=== PATIENT | female | born 1945 | race Caucasian/White ===

== ENCOUNTER 2021-12-28 09:14 | Outpatient (RCR) | payer MEDICARE | END 2021-12-30 | disposition home or self-care (01) | PROVIDERS: ATTEND Family Medicine | DX: M25.511 Pain in right shoulder (principal); I10 Essential (primary) hypertension ==

== ENCOUNTER 2022-01-19 11:22 | Outpatient (RCR) | payer MEDICARE ==
[2022-01-20] MEDS ORDERED: LEVO125T6 PO (15:22)
[2022-01-20] MEDS ORDERED: DIPH25CA79 PO (15:22)
[2022-01-20] MEDS ORDERED: ATEN50TA PO (15:22)
[2022-01-20] MEDS ORDERED: HYDR25TA4 PO (15:22)
[2022-01-22] MEDS ORDERED: ROSU10TA28 PO (09:14)
[2022-01-22] MEDS ORDERED: LOSA25TA41 PO (09:14)
[2022-01-22] MEDS ORDERED: HYDR25TA4 PO (09:14)
== END 2022-01-29 | disposition home or self-care (01) ==
PROVIDERS: ATTEND Family Medicine
DX: M25.511 Pain in right shoulder (principal); I10 Essential (primary) hypertension

== ENCOUNTER 2022-01-20 09:50 | Observation (INO) | payer MEDICARE ==
[~2022-01-20] VITALS: Ht 160 cm; Wt 105.0 kg
--- NOTE | 2022-01-20 10:57 | ED General ---
General Chief Complaint: Dizziness/Syncope Stated Complaint: LIGHTHEADED/DIZZY/NAUSEA/SOA Nursing Triage Note: Pt reports SOA with activity over the last several days. Pt reports dizziness yesterday while at PT appt and had BP checked by PCP. Pt was instructed by PCP to double BP dose yesterday. Pt reports sleeping well last night but had additional episode of SOA, dizziness, and nausea this morning. Pt reports dizziness at time of triage. Source of Information: Patient Exam Limitations: No Limitations History of Present Illness Date Seen by Provider: Jan 20, 2022 Time Seen by Provider: 10:53 Initial Comments This is a 76-year-old female who presented the ER via POV with complaints of increased dizziness, shortness of air, nausea. Allergies and Home Medications Allergies Coded Allergies: No Known Drug Allergies (Unverified , 01/20/22) Physical Exam Vital Signs Vital Signs - First Documented 01/20/22 10:26 Temp 36.9 Pulse 45 Resp 18 B/P (MAP) 168/76 (106) Pulse Ox 98 O2 Delivery Room Air Capillary Refill : Height, Weight, BMI Height: '" Weight: lbs. oz. kg; 38.00 BMI Method: Progress/Results/Core Measures Suspected Sepsis SIRS Temperature: Pulse: 45 Respiratory Rate: 18 Laboratory Tests 01/20/22 10:44: White Blood Count 6.6 Blood Pressure 168 /76 Mean: 106 Laboratory Tests 01/20/22 10:44: Creatinine 0.84, INR Comment 0.8, Platelet Count 235, Total Bilirubin 0.5 Results/Orders Lab Results Laboratory Tests Test 01/20/22 10:44 Range/Units White Blood Count 6.6 4.3-11.0 10^3/uL Red Blood Count 4.63 3.80-5.11 10^6/uL Hemoglobin 13.4 11.5-16.0 g/dL Hematocrit 40 35-52 % Mean Corpuscular Volume 87 80-99 fL Mean Corpuscular Hemoglobin 29 25-34 pg Mean Corpuscular Hemoglobin Concent 33 32-36 g/dL Red Cell Distribution Width 14.0 10.0-14.5 % Platelet Count 235 130-400 10^3/uL Mean Platelet Volume 10.3 9.0-12.2 fL Immature Granulocyte % (Auto) 0 % Neutrophils (%) (Auto) 55 42-75 % Lymphocytes (%) (Auto) 34 12-44 % Monocytes (%) (Auto) 8 0-12 % Eosinophils (%) (Auto) 3 0-10 % Basophils (%) (Auto) 1 0-10 % Neutrophils # (Auto) 3.6 1.8-7.8 10^3/uL Lymphocytes # (Auto) 2.2 1.0-4.0 10^3/uL Monocytes # (Auto) 0.5 0.0-1.0 10^3/uL Eosinophils # (Auto) 0.2 0.0-0.3 10^3/uL Basophils # (Auto) 0.0 0.0-0.1 10^3/uL Immature Granulocyte # (Auto) 0.0 0.0-0.1 10^3/uL Prothrombin Time 11.8 L 12.2-14.7 SEC INR Comment 0.8 0.8-1.4 Activated Partial Thromboplast Time 34 24-35 SEC D-Dimer 0.63 H 0.00-0.49 UG/ML Sodium Level 137 135-145 MMOL/L Potassium Level 4.0 3.6-5.0 MMOL/L Chloride Level 99 98-107 MMOL/L Carbon Dioxide Level 24 21-32 MMOL/L Anion Gap 14 5-14 MMOL/L Blood Urea Nitrogen 16 7-18 MG/DL Creatinine 0.84 0.60-1.30 MG/DL Estimat Glomerular Filtration Rate 72 BUN/Creatinine Ratio 19 Glucose Level 116 H 70-105 MG/DL Calcium Level 9.4 8.5-10.1 MG/DL Corrected Calcium 9.5 8.5-10.1 MG/DL Magnesium Level 2.2 1.6-2.4 MG/DL Total Bilirubin 0.5 0.1-1.0 MG/DL Aspartate Amino Transf (AST/SGOT) 16 5-34 U/L Alanine Aminotransferase (ALT/SGPT) 11 0-55 U/L Alkaline Phosphatase 70 40-136 U/L Total Creatine Kinase 67 29-168 U/L Creatine Kinase MB 1.5 <6.6 NG/ML Myoglobin 40.2 10.0-92.0 NG/ML Troponin I < 0.028 <0.028 NG/ML B-Type Natriuretic Peptide 138.2 H <100.0 PG/ML Total Protein 7.0 6.4-8.2 GM/DL Albumin 3.9 3.2-4.5 GM/DL My Orders Orders - ROSITA KUMAR GRAIN RECEIVER Cbc With Automated Diff (01/20/22 10:56) Magnesium (01/20/22 10:56) Chest 1 View, Ap/Pa Only (01/20/22 10:56) Comprehensive Metabolic Panel (01/20/22 10:56) Myoglobin Serum (01/20/22 10:56) Protime With Inr (01/20/22 10:56) Partial Thromboplastin Time (01/20/22 10:56) O2 (01/20/22 10:56) Monitor-Rhythm Ecg Trace Only (01/20/22 10:56) Ed Iv/Invasive Line Start (01/20/22 10:56) Creatine Kinase (01/20/22 10:56) Creatine Kinase Mb (01/20/22 10:56) Bnp [place] (01/20/22 10:56) Fibrin Degradation Products (01/20/22 10:56) Troponin I Syl (01/20/22 10:56) Meclizine Tablet (Antivert Tablet) (01/20/22 12:00) Vital Signs/I&O 01/20/22 10:26 Temp 36.9 Pulse 45 Resp 18 B/P (MAP) 168/76 (106) Pulse Ox 98 O2 Delivery Room Air Capillary Refill : Blood Pressure Mean: 106 Departure Communication (Admissions) Time/Spoke to Admitting Phy: 11:15 Dr. Marsh Time/Spoke to Consulting Phy: 10:58 Dr. Velarde Impression Primary Impression: Bradycardia Disposition: ADMITTED INPATIENT Condition: Stable Admissions Decision to Admit/Date: Jan 20, 2022 Time/Decision to Admit Time: 11:00 Departure-Patient Inst. Referrals: RAYSA MARSH DO (PCP/Family) Primary Care Physician ROSITA KUMAR GRAIN RECEIVER Jan 20, 2022 10:57
[2022-01-20 11:03] LABS: BASOPHILS % (AUTO) 1 % (0-10); EOSINOPHILS # (AUTO) 0.2 10^3/uL (0.0-0.3); EOSINOPHILS % (AUTO) 3 % (0-10); HEMATOCRIT 40 % (35-52); HEMOGLOBIN 13.4 g/dL (11.5-16.0); LYMPHOCYTES # (AUTO) 2.2 10^3/uL (1.0-4.0); LYMPHOCYTES % (AUTO) 34 % (12-44); MEAN CORPUSCULAR HEMOGLOBIN 29 pg (25-34); MEAN CORPUSCULAR HGB CONC 33 g/dL (32-36); MEAN CORPUSCULAR VOLUME 87 fL (80-99); MEAN PLATELET VOLUME 10.3 fL (9.0-12.2); MONOCYTES # (AUTO) 0.5 10^3/uL (0.0-1.0); MONOCYTES % (AUTO) 8 % (0-12); NEUTROPHILS # (AUTO) 3.6 10^3/uL (1.8-7.8); NEUTROPHILS % (AUTO) 55 % (42-75); PLATELET COUNT 235 10^3/uL (130-400); WHITE BLOOD COUNT 6.6 10^3/uL (4.3-11.0)
[2022-01-20 11:13] LABS: INR 0.8 (0.8-1.4); PROTHROMBIN TIME PATIENT 11.8 SEC (12.2-14.7)
[2022-01-20 11:20] LABS: ALBUMIN 3.9 GM/DL (3.2-4.5)
[2022-01-20 11:22] LABS: CALCIUM 9.4 MG/DL (8.5-10.1)
[2022-01-20 11:25] LABS: BILIRUBIN,TOTAL 0.5 MG/DL (0.1-1.0)
[2022-01-20 11:26] LABS: CREATININE SERUM 0.84 MG/DL (0.60-1.30)
--- NOTE | 2022-01-20 11:27 | Diagnostic Imaging Report ---
CLINICAL INDICATION: Patient with dizziness and syncope. EXAM: Portable chest x-ray upright view. COMPARISON: None. FINDINGS: Lungs/pleura: Lungs are clear. There is no pneumothorax. There is no pleural effusion. Mediastinum: Unremarkable. Pulmonary vasculature: Unremarkable. Heart: Unremarkable. Bones/extrathoracic soft tissue: Degenerative spurs involving the thoracic spine. IMPRESSION: There is no radiographic evidence of acute cardiopulmonary process. Dictated by: Dictated on workstation # [id number]
[2022-01-20 11:29] LABS: MAGNESIUM 2.2 MG/DL (1.6-2.4)
[2022-01-20 11:37] LABS: CREATINE KINASE MB 1.5 NG/ML (<6.6)
[2022-01-20] MEDS ORDERED: MECLIZINE 25 MG (ANTIVERT) TAB PO ONE (12:00)
[2022-01-20 13:11] VITALS: BP 146/99
[2022-01-20 13:15] VITALS: BP 157/73
[2022-01-20] MEDS ORDERED: ONDANSETRON 4 MG/2 ML (SDV) Z0FRAN IV PRN (13:15)
[2022-01-20] MEDS ORDERED: CATHETER FLUSH 10 ML SYR IVP PRN (13:15)
[2022-01-20] MEDS ORDERED: ACETAMINOPHEN 325 MG TABLET PO PRN (13:15)
[2022-01-20] MEDS ORDERED: RT-ALBUTEROL SULF 2.5 MG/3 ML PRE-MIX VIAL INH PRN (13:15)
[2022-01-20] MEDS ORDERED: hydrALAZINE (APESOLINE) 20 MG/ML VIAL IV PRN (13:15)
[2022-01-20] MEDS ORDERED: ENOXAPARIN 40 MG/0.4 ML (LOVENOX) SYR SC SCH (13:30)
[2022-01-20] MEDS ORDERED: DIPH25CA79 PO (15:22)
[2022-01-20] MEDS ORDERED: LEVO125T6 PO (15:22)
[2022-01-20] MEDS ORDERED: HYDR25TA4 PO (15:22)
[2022-01-20] MEDS ORDERED: ATEN50TA PO (15:22)
[2022-01-20] MEDS: CATHETER FLUSH 10 ML SYR IVP SCH ×2 (15:53→20:25)
--- NOTE | 2022-01-20 16:45 | Consultation-Cardiology ---
HPI-Cardiology Cardiology Consultation: Date of Consultation 01/20/22 Date of Admission Attending Physician Megan Marsh DO Admitting Physician Admitting Physician: Megan Marsh DO Attending Physician: Megan Marsh DO Consulting Physician YESIKA PONCE JR, MD HPI: Time Seen by a Provider: 16:45 Chief Complaint: REASON FOR CONSULTATION: Bradycardia. I had the pleasure of seeing Lizabeth on the cardiac stepdown unit at [facility] in [place], [place] today. She has no known history of coronary artery disease. She has cardiac risk factors of hypertension and untreated hyperlipidemia. Over this past weekend she was stepping [place] and did a fair amount of walking and was feeling very tired due to the exertion. She does not normally walk as much as she did over the weekend. She did notice that she was having some slight shortness of breath but thought this was just related to the long walks she had taken. Then yesterday she started having lightheaded and dizzy spells. She went to her primary provider and saw the nurse. Her blood pressure was found to be elevated and she was instructed to increase her dose of atenolol. When she went home, she took an extra dose of atenolol. Then this morning she continued to have profound fatigue and lightheadedness and dizziness. Just walking from 1 room to another would make her feel short of breath. She became concerned and came to the emergency room for further evaluat ion. While she was in the emergency room, she was noted to have bradycardia with intermittent possible type II second-degree AV block or even some intermittent third-degree AV block and she was admitted for further evaluation. She will very rarely gets some slight chest pains. She does report that after falling a few years ago, she has not gotten much in the way of regular exercise and has gained a fair amount of weight. She thought the majority of her dyspnea on exertion was related to the weight gain and her sedentary lifestyle. She denies paroxysmal nocturnal dyspnea, orthopnea, palpitations, or syncope. She gets some mild ankle edema from time to time and will take a diuretic as needed. Because of the bradycardia, a cardiology consultation was requested. Certain portions of this document may have been dictated utilizing voice recognition technology. Inherent to this technology, typographical and grammatical errors may exist. As much as I am diligent to identify and correct these mistakes, some errors may remain in the document. Review of Systems-Cardiology Review of Systems Other comments Review of 10 organ systems is as per the history of present illness, otherwise negative. AFS-[id number]-Piidgt Hx Patient Social History Smoking Status: Former Smoker Have you traveled recently?: No Alcohol Use?: No Pt feels they are or have been: No Past Medical History PMH As described under Assessment. Family Medical History Family Medical History: Her father of a myocardial infarction in his 70s. Allergies and Home Medications Allergies Coded Allergies: No Known Drug Allergies (Unverified , 01/20/22) Patient Home Medication List Home Medication List Reviewed: Yes Atenolol (Atenolol) 50 Mg Tablet, 50 MG PO DAILY, (Reported) Entered as Reported by: KAYLYN RUTLEDGE on 01/20/221521 Last Action: Reviewed Diphenhydramine HCl (Benadryl) 25 Mg Capsule, 50 MG PO HS, (Reported) Entered as Reported by: KAYLYN RUTLEDGE on 01/20/221521 Last Action: Reviewed Hydrochlorothiazide (Hydrochlorothiazide) 25 Mg Tablet, 25 MG PO DAILY PRN for FLUID RETENTION, (Reported) Entered as Reported by: KAYLYN RUTLEDGE on 01/20/221521 Last Action: Reviewed Levothyroxine Sodium (Levothyroxine Sodium) 125 Mcg Tablet, 125 MCG PO DAILY, (Reported) Entered as Reported by: KAYLYN RUTLEDGE on 01/20/221521 Last Action: Reviewed Exam Vital Signs Vital Signs Date Time Temp Pulse Resp B/P (MAP) Pulse Ox O2 Delivery O2 Flow Rate FiO2 01/20/22 13:11 36.9 40 96 01/20/22 12:38 146/99 Room Air 01/20/22 10:26 18 Physical Exam General: Alert. No acute distress. Well nourished and appears stated age. She is obese. Eye: Extraocular movements are intact. Conjunctivae are clear. There are no xanthelasma. HENT: Normocephalic. Atraumatic. Carotid pulsations 2/2 without bruits. Neck: Jugular venous pressure does not appear elevated. No thyromegaly appreciated. Respiratory: Lungs are clear to auscultation. Respirations are non-labored. Breath sounds are equal. Symmetrical chest wall expansion. Cardiovascular: Normal rate. Regular rhythm. Distant S1/S2. No murmur. No gallop. Point of maximal impulse is not appear displaced. Good pulses equal in all extremities. No edema. Gastrointestinal: Soft. Normal bowel sounds. Skin: Skin turgor is normal. There is no pallor. Musculoskeletal: No kyphosis or scoliosis appreciated. Neurologic: Alert and oriented to person, place, time. Cranial nerves 3-12 appear grossly intact. The patient has good motor tone strength in the upper and lower extremities bilaterally. Psychiatric: Cooperative. Appropriate mood & affect. Labs Laboratory Tests Test 01/20/22 10:44 01/20/22 13:33 Range/Units White Blood Count 6.6 4.3-11.0 10^3/uL Red Blood Count 4.63 3.80-5.11 10^6/uL Hemoglobin 13.4 11.5-16.0 g/dL Hematocrit 40 35-52 % Mean Corpuscular Volume 87 80-99 fL Mean Corpuscular Hemoglobin 29 25-34 pg Mean Corpuscular Hemoglobin Concent 33 32-36 g/dL Red Cell Distribution Width 14.0 10.0-14.5 % Platelet Count 235 130-400 10^3/uL Mean Platelet Volume 10.3 9.0-12.2 fL Immature Granulocyte % (Auto) 0 % Neutrophils (%) (Auto) 55 42-75 % Lymphocytes (%) (Auto) 34 12-44 % Monocytes (%) (Auto) 8 0-12 % Eosinophils (%) (Auto) 3 0-10 % Basophils (%) (Auto) 1 0-10 % Neutrophils # (Auto) 3.6 1.8-7.8 10^3/uL Lymphocytes # (Auto) 2.2 1.0-4.0 10^3/uL Monocytes # (Auto) 0.5 0.0-1.0 10^3/uL Eosinophils # (Auto) 0.2 0.0-0.3 10^3/uL Basophils # (Auto) 0.0 0.0-0.1 10^3/uL Immature Granulocyte # (Auto) 0.0 0.0-0.1 10^3/uL Prothrombin Time 11.8 L 12.2-14.7 SEC INR Comment 0.8 0.8-1.4 Activated Partial Thromboplast Time 34 24-35 SEC D-Dimer 0.63 H 0.00-0.49 UG/ML Sodium Level 137 135-145 MMOL/L Potassium Level 4.0 3.6-5.0 MMOL/L Chloride Level 99 98-107 MMOL/L Carbon Dioxide Level 24 21-32 MMOL/L Anion Gap 14 5-14 MMOL/L Blood Urea Nitrogen 16 7-18 MG/DL Creatinine 0.84 0.60-1.30 MG/DL Estimat Glomerular Filtration Rate 72 BUN/Creatinine Ratio 19 Glucose Level 116 H 70-105 MG/DL Calcium Level 9.4 8.5-10.1 MG/DL Corrected Calcium 9.5 8.5-10.1 MG/DL Magnesium Level 2.2 1.6-2.4 MG/DL Total Bilirubin 0.5 0.1-1.0 MG/DL Aspartate Amino Transf (AST/SGOT) 16 5-34 U/L Alanine Aminotransferase (ALT/SGPT) 11 0-55 U/L Alkaline Phosphatase 70 40-136 U/L Total Creatine Kinase 67 29-168 U/L Creatine Kinase MB 1.5 <6.6 NG/ML Myoglobin 40.2 10.0-92.0 NG/ML Troponin I < 0.028 < 0.028 <0.028 NG/ML B-Type Natriuretic Peptide 138.2 H <100.0 PG/ML Total Protein 7.0 6.4-8.2 GM/DL Albumin 3.9 3.2-4.5 GM/DL Thyroid Stimulating Hormone (TSH) 1.06 0.35-4.94 UIU/ML ECG Impression ECG Comment Sinus bradycardia and sinus rhythm with possible second-degree versus third- degree AV block. Diagnosis/Problems Diagnosis/Problems (1) Bradycardia Status: Acute Assessment & Plan: She is having intermittent bradycardia and possible type II second-degree AV block and may be even some third-degree AV block. She did just increase her dose of beta-camryn at home yesterday under the directions of her primary provider. I suspect this could be an early sign of sick sinus syndrome or AV gabby disease. I recommend she stop her beta-camryn. We may need to watch her for 2-3 days until the beta-camryn completely washes out of her system. At this time, there is no indication for a temporary or permanent pacemaker. Her TSH was normal which suggests that thyroid is not contributing to the bradycardia. She is ordered for an echocardiogram that will be done tomorrow. (2) Primary hypertension Assessment & Plan: She will need a different agent other than beta-camryn or diltiazem or verapamil for her hypertension. Any of these will likely just cause recurrent bradycardia. I will restart her hydrochlorothiazide. I suspect she may need an additional agent. (3) Mixed hyperlipidemia Assessment & Plan: She has hyperlipidemia and cholesterol medication was recommended in the past but the patient did not want to take a statin medication. A lipid panel has been ordered. (4) Acquired hypothyroidism Assessment & Plan: Her TSH was normal. This should not be contributing to the bradycardia as noted above. (5) Morbid obesity Assessment & Plan: She needs to work on weight loss. Much of her dyspnea may be related to obesity and sedentary lifestyle. YESIKA PONCE JR, MD Jan 20, 2022 16:45
[2022-01-20 17:40] VITALS: BP 131/68
--- NOTE | 2022-01-20 17:59 | History & Physical ---
History of Present Illness History of Present Illness Reason for visit/HPI This is a 76 year old female who presented to the emergency room with fatigue and dizziness and recently elevated blood pressure. She was found to be severely bradycardic with a heart rate in the 30s. She is on atenolol and had taken one extra dose of atenolol 50mg last night due to her elevated blood pressure but her pulse was in the 70s at the time. She will be admitted for further workup and observation. She has not coronary history but does have a cardiac murmur for which she has refused an echocardiogram in the past as well as hyperlipidemia for which she has refused treatment as well. Date of Admission Jan 20, 2022 at 11:50 Date Seen by a Provider: Jan 20, 2022 Time Seen by a Provider: 12:45 I consulted on this patient on 01/20/22 17:52 Attending Physician Megan Marsh DO Admitting Physician Admitting Physician: Megan Marsh DO Attending Physician: Megan Marsh DO Consult Allergies and Home Medications Allergies Coded Allergies: No Known Drug Allergies (Unverified , 01/20/22) Patient Home Medication List Home Medication List Reviewed: Yes Atenolol (Atenolol) 50 Mg Tablet, 50 MG PO DAILY, (Reported) Entered as Reported by: KAYLYN RUTLEDGE on 01/20/221521 Last Action: Reviewed Diphenhydramine HCl (Benadryl) 25 Mg Capsule, 50 MG PO HS, (Reported) Entered as Reported by: KAYLYN RUTLEDGE on 01/20/221521 Last Action: Reviewed Hydrochlorothiazide (Hydrochlorothiazide) 25 Mg Tablet, 25 MG PO DAILY PRN for FLUID RETENTION, (Reported) Entered as Reported by: KAYLYN RUTLEDGE on 01/20/221521 Last Action: Reviewed Levothyroxine Sodium (Levothyroxine Sodium) 125 Mcg Tablet, 125 MCG PO DAILY, (Reported) Entered as Reported by: KAYLYN RUTLEDGE on 01/20/221521 Last Action: Reviewed Past Kpiotuq-Ielvhg-Qeveta Hx Patient Social History Tobacco Use?: No Smoking Status: Former Smoker Smokeless Tobacco Frequency: Never a User Use of E-Cig and/or Vaping dev: No Substance use?: No Alcohol Use?: No Pt feels they are or have been: No Immunizations Up To Date Tetanus Booster (TDap): More Than 5 Years Current Status status: No Advance Directives: No Communicates: Verbally Primary Language: Georgian Preferred Spoken Language: Georgian Is interpretation needed?: No Sensory deficits: Vision impairment Review of Systems Constitutional: weakness EENTM: No see HPI, No no symptoms reported, No ear discharge, No hearing loss, No ear pain, No blurred vision, No double vision, No eye pain, No tearing, No vision loss, No dental problems, No hoarseness, No mouth pain, No mouth swelling, No epistaxis, No nose congestion, No nose pain, No throat pain, No throat swelling, No other Respiratory: dyspnea on exertion Cardiovascular: edema Gastrointestinal: No RUQ, No LUQ, No RLQ, No LLQ, No no symptoms reported, No see HPI, No abdominal pain, No constipation, No diarrhea, No dysphagia, No hematemesis, No heartburn, No jaundice, No loss of appetite, No melena, No nausea, No vomiting, No other Genitourinary: No no symptoms reported, No see HPI, No decreased output, No discharge, No dysuria, No frequency, No hematuria, No hesitancy, No incontinence, No nocturia, No pain, No other Musculoskeletal: back pain, muscle weakness Skin: No no symptoms reported, No see HPI, No change in color, No change in hair/nails, No dryness, No hx of skin cancer, No lesions, No lumps, No pruritus, No rash, No other Psychiatric/Neurological: Weakness Physical Exam Vital Signs Vital Signs - First Documented 01/20/22 10:26 Temp 36.9 Pulse 45 Resp 18 B/P (MAP) 168/76 (106) Pulse Ox 98 O2 Delivery Room Air Capillary Refill : Height, Weight, BMI Height: '" Weight: lbs. oz. kg; 41.05 BMI Method: General Appearance: No Apparent Distress HEENT: Normal ENT Inspection Neck: Supple Respiratory: Lungs Clear Cardiovascular: Bradycardia, Systolic Murmur Gastrointestinal: Normal Bowel Sounds, Non Tender, Soft Rectal: Deferred Back: No CVA Tenderness Extremity: Non Tender, No Calf Tenderness, Pedal Edema (1 plus edema) Neurologic/Psychiatric: Alert, Oriented x3 Skin: Warm/Dry Comments Laboratory Tests 01/20/22 10:44: White Blood Count 6.6, Red Blood Count 4.63, Hemoglobin 13.4, Hematocrit 40, Mean Corpuscular Volume 87, Mean Corpuscular Hemoglobin 29, Mean Corpuscular Hemoglobin Concent 33, Red Cell Distribution Width 14.0, Platelet Count 235, Mean Platelet Volume 10.3, Immature Granulocyte % (Auto) 0, Neutrophils (%) (Auto) 55, Lymphocytes (%) (Auto) 34, Monocytes (%) (Auto) 8, Eosinophils (%) (Auto) 3, Basophils (%) (Auto) 1, Neutrophils # (Auto) 3.6, Lymphocytes # (Auto) 2.2, Monocytes # (Auto) 0.5, Eosinophils # (Auto) 0.2, Basophils # (Auto) 0.0, Immature Granulocyte # (Auto) 0.0, Prothrombin Time 11.8L, INR Comment 0.8, Activated Partial Thromboplast Time 34, D-Dimer 0.63H, Sodium Level 137, Potassium Level 4.0, Chloride Level 99, Carbon Dioxide Level 24, Anion Gap 14, Blood Urea Nitrogen 16, Creatinine 0.84, Estimat Glomerular Filtration Rate 72, BUN/Creatinine Ratio 19, Glucose Level 116H, Calcium Level 9.4, Corrected Calcium 9.5, Magnesium Level 2.2, Total Bilirubin 0.5, Aspartate Amino Transf (AST/SGOT) 16, Alanine Aminotransferase (ALT/SGPT) 11, Alkaline Phosphatase 70, Total Creatine Kinase 67, Creatine Kinase MB 1.5, Myoglobin 40.2, Troponin I < 0.028, B-Type Natriuretic Peptide 138.2H, Total Protein 7.0, Albumin 3.9 01/20/22 13:33: Troponin I < 0.028, Thyroid Stimulating Hormone (TSH) 1.06 Assessment/Plan Assessment and Plan 1. Sinus Bradycardia--admit to cardiac stepdown and monitor on telemetry, hold atenolol 2. Hypertension--hydralazine prn for elevated blood pressure 3. Cardiac Murmur--check 2-D ECHO 4. Hyperlipidemia--has refused meds 5. Hypothyroidism--TSH normal 6. Class III Obesity--patient states she is taking this admission as a call to action for diet and exercise/lifestyle change Admission Diagnosis Admission Status: Observation Clinical Quality Measures AMI/AHF: ASA po Prior to arrival: MEGAN Carmona DO Jan 20, 2022 17:59
[2022-01-20 19:44] VITALS: BP 122/62
[2022-01-20] MEDS: FAMOTIDINE 20 MG (PEPCID) TABLET PO SCH (20:25)
[2022-01-21 05:40] LABS: BASOPHILS # (AUTO) 0.1 10^3/uL (0.0-0.1); BASOPHILS % (AUTO) 1 % (0-10); EOSINOPHILS # (AUTO) 0.3 10^3/uL (0.0-0.3); EOSINOPHILS % (AUTO) 4 % (0-10); HEMATOCRIT 35 % (35-52); HEMOGLOBIN 11.7 g/dL (11.5-16.0); LYMPHOCYTES # (AUTO) 2.5 10^3/uL (1.0-4.0); LYMPHOCYTES % (AUTO) 39 % (12-44); MEAN CORPUSCULAR HEMOGLOBIN 29 pg (25-34); MEAN CORPUSCULAR HGB CONC 33 g/dL (32-36); MEAN CORPUSCULAR VOLUME 87 fL (80-99); MEAN PLATELET VOLUME 10.7 fL (9.0-12.2); MONOCYTES # (AUTO) 0.6 10^3/uL (0.0-1.0); MONOCYTES % (AUTO) 9 % (0-12); NEUTROPHILS # (AUTO) 2.9 10^3/uL (1.8-7.8); NEUTROPHILS % (AUTO) 47 % (42-75); PLATELET COUNT 208 10^3/uL (130-400); WHITE BLOOD COUNT 6.3 10^3/uL (4.3-11.0)
[2022-01-21 05:48] LABS: POTASSIUM 3.9 MMOL/L (3.6-5.0)
[2022-01-21 05:50] LABS: CALCIUM 8.8 MG/DL (8.5-10.1)
[2022-01-21 05:54] LABS: CREATININE SERUM 0.84 MG/DL (0.60-1.30)
[2022-01-21] MEDS: CATHETER FLUSH 10 ML SYR IVP SCH ×3 (06:16→21:18)
[2022-01-21 07:39] VITALS: BP 123/61
[2022-01-21 11:30] VITALS: BP 127/86
[2022-01-21] MEDS: FAMOTIDINE 20 MG (PEPCID) TABLET PO SCH ×2 (11:46→21:46)
--- NOTE | 2022-01-21 12:10 | Cardiology Progress Note ---
Progress Note-Cardiology Events since last exam Date Seen by Provider: Jan 21, 2022 Time Seen by Provider: 12:10 Events since last exam I am following her due to bradycardia. Vitals Last set of Vitals Signs Vital Signs 01/21/22 01/21/22 01/21/22 11:30 12:00 13:00 Temp 37.1 Pulse 56 Resp 14 B/P (MAP) 127/86 (100) Pulse Ox 97 O2 Delivery Room Air Labs Labs Laboratory Tests 01/21/22 05:13 Exam Vital Signs Vital Signs Date Time Temp Pulse Resp B/P (MAP) Pulse Ox O2 Delivery O2 Flow Rate FiO2 01/21/22 13:00 56 01/21/22 12:00 97 Room Air 01/21/22 11:30 37.1 14 127/86 (100) Physical Exam General: Alert. No acute distress. She is obese. Eye: No xanthelasma. HENT: Normocephalic. Neck: Jugular venous pressure does not appear elevated. Respiratory: Lungs are clear to auscultation. Respirations are non-labored. Breath sounds are equal. Symmetrical chest wall expansion. Cardiovascular: Normal rate. Regular rhythm. Distant S1/S2. No murmur. No gallop. No edema. Gastrointestinal: Soft. Normal bowel sounds. Skin: Warm. Dry. Neurologic: Alert and oriented to person, place, time. Cranial nerves 3-11 grossly intact. Psychiatric: Cooperative. Appropriate mood & affect. Labs Laboratory Tests Test 01/20/22 18:56 01/20/22 22:45 01/21/22 05:13 Range/Units Troponin I < 0.028 < 0.028 <0.028 NG/ML White Blood Count 6.3 4.3-11.0 10^3/uL Red Blood Count 4.03 3.80-5.11 10^6/uL Hemoglobin 11.7 11.5-16.0 g/dL Hematocrit 35 35-52 % Mean Corpuscular Volume 87 80-99 fL Mean Corpuscular Hemoglobin 29 25-34 pg Mean Corpuscular Hemoglobin Concent 33 32-36 g/dL Red Cell Distribution Width 14.0 10.0-14.5 % Platelet Count 208 130-400 10^3/uL Mean Platelet Volume 10.7 9.0-12.2 fL Immature Granulocyte % (Auto) 0 % Neutrophils (%) (Auto) 47 42-75 % Lymphocytes (%) (Auto) 39 12-44 % Monocytes (%) (Auto) 9 0-12 % Eosinophils (%) (Auto) 4 0-10 % Basophils (%) (Auto) 1 0-10 % Neutrophils # (Auto) 2.9 1.8-7.8 10^3/uL Lymphocytes # (Auto) 2.5 1.0-4.0 10^3/uL Monocytes # (Auto) 0.6 0.0-1.0 10^3/uL Eosinophils # (Auto) 0.3 0.0-0.3 10^3/uL Basophils # (Auto) 0.1 0.0-0.1 10^3/uL Immature Granulocyte # (Auto) 0.0 0.0-0.1 10^3/uL Sodium Level 136 135-145 MMOL/L Potassium Level 3.9 3.6-5.0 MMOL/L Chloride Level 103 98-107 MMOL/L Carbon Dioxide Level 22 21-32 MMOL/L Anion Gap 11 5-14 MMOL/L Blood Urea Nitrogen 21 H 7-18 MG/DL Creatinine 0.84 0.60-1.30 MG/DL Estimat Glomerular Filtration Rate 72 BUN/Creatinine Ratio 25 Glucose Level 109 H 70-105 MG/DL Calcium Level 8.8 8.5-10.1 MG/DL Triglycerides Level 109 <150 MG/DL Cholesterol Level 220 H < 200 MG/DL LDL Cholesterol Direct 174 H 1-129 MG/DL VLDL Cholesterol 22 5-40 MG/DL HDL Cholesterol 41 40-60 MG/DL Radiology ECHOCARDIOGRAM (01/21/2022): 1. This is a technically difficult study due to poor image quality secondary to patient's body habitus. Intravenous contrast was administered to enhance image quality. 2. Left ventricle: The cavity size is normal. There is severe concentric hypertrophy. Systolic function is normal. The estimated ejection fraction is 60- 65%. There were no regional wall motion abnormalities identified. The left ventricular diastolic function is indeterminate. 3. Left atrium: The left atrium is severely dilated with a volume index ranging from 51-73 mL/m. 4. Right atrium: The right atrium is moderately dilated with an area of 23 cm. 5. Atrial septum: The intra-atrial septum is mobile but there does not appear to be any overt atrial septal aneurysm. 6. Mitral valve: The annulus is mildly calcified. There is mild mitral stenosis with a mean gradient of 8 mmHg, half-time of 53 ms and a calculated mitral valve area of 1.6 cm. There is moderate to severe mitral regurgitation. 7. Aortic valve: There is mild aortic valve sclerosis. 8. Tricuspid valve: There is mild-moderate tricuspid regurgitation. 9. Pulmonic valve: There is mild pulmonic regurgitation. 10. Pulmonary arteries: The estimated pulmonary artery systolic pressure is 40 mmHg assuming a right atrial pressure of 5 mmHg. Diagnosis/Problems Diagnosis/Problems (1) Bradycardia Status: Acute Assessment & Plan: She is still having intermittent bradycardia and possible type II second-degree AV block and may be even some third-degree AV block. Her last dose of beta-camryn was in the morning on 01/20. We may need to watch her for 2-3 days until the beta-camryn completely washes out of her system. At this time, there is no indication for a temporary or permanent pacemaker. Her TSH was normal which suggests that thyroid is not contributing to the bradycardia. I suspect coronary artery disease would not have anything to do with the bradycardia but we may want to consider an ischemic evaluation following discharge. (2) Mitral stenosis with regurgitation Assessment & Plan: This was an incidental finding on her echocardiogram. This will need to be followed longitudinally. Unclear whether or not this could be contributing to her fatigue. (3) Primary hypertension Assessment & Plan: She will need a different agent other than beta-camryn or diltiazem or verapamil for her hypertension. Any of these will likely just cause recurrent bradycardia. I restarted her hydrochlorothiazide. Her blood pressure has actually been reasonably controlled with this monotherapy. (4) Mixed hyperlipidemia Assessment & Plan: She has hyperlipidemia and cholesterol medication was recommended in the past but the patient did not want to take a statin medication. Her LDL level is quite elevated. I would recommend at least a low- dose statin medication which I will order but will leave up to the patient w hether or not she agrees to take this. (5) Acquired hypothyroidism Assessment & Plan: Her TSH was normal. This should not be contributing to the bradycardia as noted above. (6) Morbid obesity Assessment & Plan: She needs to work on weight loss. Much of her dyspnea may be related to obesity and sedentary lifestyle. YESIKA PONCE JR, MD Jan 21, 2022 12:10
[2022-01-21 12:33] LABS: CHOLESTEROL 220 MG/DL (< 200); HDL CHOLESTEROL 41 MG/DL (40-60); TRIGLYCERIDES 109 MG/DL (<150); VLDL CHOLESTEROL 22 MG/DL (5-40)
--- NOTE | 2022-01-21 13:12 | Progress Note ---
Subjective Date Seen by a Provider: Jan 21, 2022 Time Seen by a Provider: 13:09 Subjective/Events-last exam Fwup bradycardia, HTN, cardiac murmur. Patient still with heart rate down to 30s--suspicious for sinus node dysfunction. Objective Exam Vital Signs Date Time Temp Pulse Resp B/P (MAP) Pulse Ox O2 Delivery O2 Flow Rate FiO2 01/21/22 12:00 97 Room Air 01/21/22 11:30 37.1 33 14 127/86 (100) 97 Room Air 01/21/22 08:00 97 Room Air 01/21/22 07:39 36.3 34 14 123/61 (81) 97 Room Air 01/21/22 07:00 34 01/21/22 04:00 95 Room Air 01/21/22 04:00 36.9 01/21/22 01:08 39 01/21/22 00:00 36.7 01/20/22 23:59 96 Room Air 01/20/22 20:00 98 Room Air 01/20/22 19:44 36.7 48 12 122/62 (82) Room Air 01/20/22 19:16 40 01/20/22 17:40 36.7 52 16 131/68 (89) 97 Room Air 01/20/22 16:30 100 Room Air 01/20/22 13:15 36.2 32 16 157/73 (101) 96 Room Air 01/20/22 13:11 36.9 40 96 I & O 01/21/22 07:00 Intake Total 1020 ml Balance 1020 ml Capillary Refill : General Appearance: No Apparent Distress Neck: Supple Respiratory: Lungs Clear Cardiovascular: Bradycardia, Systolic Murmur Extremity: Non Tender, No Calf Tenderness, No Pedal Edema Neurologic/Psychiatric: Alert, Oriented x3 Results Lab Laboratory Tests 01/20/22 13:33: Troponin I < 0.028, Thyroid Stimulating Hormone (TSH) 1.06 01/20/22 18:56: Troponin I < 0.028 01/20/22 22:45: Troponin I < 0.028 01/21/22 05:13: White Blood Count 6.3, Red Blood Count 4.03, Hemoglobin 11.7, Hematocrit 35, Mean Corpuscular Volume 87, Mean Corpuscular Hemoglobin 29, Mean Corpuscular Hemoglobin Concent 33, Red Cell Distribution Width 14.0, Platelet Count 208, Mean Platelet Volume 10.7, Immature Granulocyte % (Auto) 0, Neutrophils (%) (Auto) 47, Lymphocytes (%) (Auto) 39, Monocytes (%) (Auto) 9, Eosinophils (%) (Auto) 4, Basophils (%) (Auto) 1, Neutrophils # (Auto) 2.9, Lymphocytes # (Auto) 2.5, Monocytes # (Auto) 0.6, Eosinophils # (Auto) 0.3, Basophils # (Auto) 0.1, Immature Granulocyte # (Auto) 0.0, Sodium Level 136, Potassium Level 3.9, Chloride Level 103, Carbon Dioxide Level 22, Anion Gap 11, Blood Urea Nitrogen 21H, Creatinine 0.84, Estimat Glomerular Filtration Rate 72, BUN/Creatinine Ratio 25, Glucose Level 109H, Calcium Level 8.8, Triglycerides Level 109, Cholesterol Level 220H, LDL Cholesterol Direct 174H, VLDL Cholesterol 22, HDL Cholesterol 41 Assessment/Plan Assessment/Plan Assess & Plan/Chief Complaint 1. Sinus Bradycardia--off beta camryn and monitoring pulse, suspect underlying sinus node dysfunction but will see if HR rebounds/improves the longer off beta camryn 2. Hypertension--stable on hydralazine 3. Cardiac Murmur--ECHO done this morning and awaiting results--patient is anxious about results Clinical Quality Measures Admission Status Admission Dx 1. Sinus Bradycardia--admit to cardiac stepdown and monitor on telemetry, hold atenolol 2. Hypertension--hydralazine prn for elevated blood pressure 3. Cardiac Murmur--check 2-D ECHO 4. Hyperlipidemia--has refused meds 5. Hypothyroidism--TSH normal 6. Class III Obesity--patient states she is taking this admission as a call to action for diet and exercise/lifestyle change AMI/AHF: ASA po Prior to arrival: RAYSA Carmona DO Jan 21, 2022 13:12
[2022-01-21 15:30] VITALS: BP 148/92
[2022-01-21] MEDS: ENOXAPARIN 40 MG/0.4 ML (LOVENOX) SYR SC SCH (17:50)
[2022-01-21 19:00] VITALS: BP 141/61
[2022-01-21] MEDS ORDERED: diphenhydrAMINE 25 MG TAB (BENADRYL) PO SCH (21:00)
[2022-01-21] MEDS ORDERED: MELATONIN 3 MG TABLET PO SCH (21:00)
[2022-01-21] MEDS ORDERED: ROSUVASTATIN 10 MG (CRESTOR) TABLET PO SCH (21:00)
[2022-01-22] VITALS (7 sets, daily range): BP systolic 144–174; BP diastolic 56–87
[2022-01-22] MEDS: ENOXAPARIN 40 MG/0.4 ML (LOVENOX) SYR SC SCH (05:07)
[2022-01-22] MEDS: CATHETER FLUSH 10 ML SYR IVP SCH (05:07)
[2022-01-22] MEDS ORDERED: LEVOTHYROXINE 125 MCG (LEVOTHROID) TABLET PO SCH (08:15)
[2022-01-22] MEDS: FAMOTIDINE 20 MG (PEPCID) TABLET PO SCH (08:32)
--- NOTE | 2022-01-22 08:56 | Cardiology Progress Note ---
Progress Note-Cardiology Events since last exam Date Seen by Provider: Jan 22, 2022 Time Seen by Provider: 08:55 Events since last exam I am following her due to bradycardia and intermittent second-degree AV block. She denies chest discomfort, dyspnea, palpitations, syncope, or ankle edema. Sh izabela wants to go home. She does not want a pacemaker at this time. Certain portions of this document may have been dictated utilizing voice recognition technology. Inherent to this technology, typographical and grammatical errors may exist. As much as I am diligent to identify and correct these mistakes, some errors may remain in the document. Vitals Last set of Vitals Signs Vital Signs 01/22/22 07:51 Pulse 45 Resp 19 B/P (MAP) 165/83 (110) Pulse Ox 97 O2 Delivery Room Air Exam Vital Signs Vital Signs Date Time Temp Pulse Resp B/P (MAP) Pulse Ox O2 Delivery O2 Flow Rate FiO2 01/22/22 07:51 45 19 165/83 (110) 97 Room Air 01/22/22 04:00 35.8 Physical Exam General: Alert. No acute distress. She is obese. Eye: No xanthelasma. HENT: Normocephalic. Neck: Jugular venous pressure does not appear elevated. Respiratory: Lungs are clear to auscultation. Respirations are non-labored. Breath sounds are equal. Symmetrical chest wall expansion. Cardiovascular: Normal rate. Regular rhythm. Distant S1/S2. No murmur. No gallop. No edema. Gastrointestinal: Soft. Normal bowel sounds. Skin: Warm. Dry. Neurologic: Alert and oriented to person, place, time. Cranial nerves 3-11 grossly intact. Psychiatric: Cooperative. Appropriate mood & affect. Diagnosis/Problems Diagnosis/Problems (1) Second degree AV block, Mobitz type II Assessment & Plan: She appears to be having intermittent 2-1 second-degree AV block. It can often be difficult to determine from the surface ECG if this is type I or type II second-degree AV block. Nevertheless, this does put her at increased risk of complete heart block which she did seem to have intermittently when she first arrived. This may have been brought on by beta-camryn but also probably signifies some degree of AV gabby dysfunction. I recommend a permanent pacemaker implantation prior to discharge. However, the patient does not want a pacemaker at this time and she does not want to stay in the hospital. I have ordered a ZIO AT monitor. I will coordinate getting this on her prior to her leaving the facility. This is a lifetime monitor and if she has significant arrhythmias detected after discharge, our office will be notified and if it is anything life-threatening, our mold machine operator on-call will likewise be notified. I did explain to her that this was not her safest option. I am concerned that if she develops significant bradycardia at home, this could cause syncope and resulting injury to herself or even possibly others. I advised her not to drive her vehicle until we get this all sorted out. (2) Bradycardia Status: Acute Assessment & Plan: She is still having intermittent bradycardia and possible type II second-degree AV block and may be even some third-degree AV block. Her last dose of beta-camryn was in the morning on 01/20. We will proceed as above. Her TSH was normal which suggests that thyroid is not contributing to the bradycardia. I suspect coronary artery disease would not have anything to do with the bradycardia but we may want to consider an ischemic evaluation following discharge. (3) Mitral stenosis with regurgitation Assessment & Plan: This was an incidental finding on her echocardiogram. This will need to be followed longitudinally. Unclear whether or not this could be contributing to her fatigue but is unlikely contributing to her bradycardia. (4) Primary hypertension Assessment & Plan: She will need a different agent other than beta-camryn or diltiazem or verapamil for her hypertension. Any of these will likely just cause recurrent bradycardia. I restarted her hydrochlorothiazide. Her blood pressure had improved but is now elevated. I will start intermediate dose losartan. (5) Mixed hyperlipidemia Assessment & Plan: She has hyperlipidemia and cholesterol medication was recommended in the past but the patient did not want to take a statin medication. Her LDL level is quite elevated. I would recommend at least a low-dose statin medication which I ordered but will leave up to the patient whether or not she agrees to take this. (6) Acquired hypothyroidism Assessment & Plan: Her TSH was normal. This should not be contributing to the bradycardia as noted above. (7) Morbid obesity Assessment & Plan: She needs to work on weight loss. Much of her dyspnea may be related to obesity and sedentary lifestyle. YESIKA PONCE JR, MD Jan 22, 2022 08:56
[2022-01-22] MEDS ORDERED: LOSARTAN 25 MG (COZAAR) TAB PO SCH (09:00)
[2022-01-22] MEDS ORDERED: LOSA25TA41 PO (09:14)
[2022-01-22] MEDS ORDERED: HYDR25TA4 PO (09:14)
[2022-01-22] MEDS ORDERED: ROSU10TA28 PO (09:14)
--- NOTE | 2022-01-22 18:00 | Discharge Summary ---
Diagnosis/Chief Complaint Date of Admission Jan 20, 2022 at 11:50 Date of Discharge Jan 22, 2022 at 13:45 Discharge Date: Jan 22, 2022 Discharge Diagnosis 1. Sinus Bradycardia--Second Degree AV Block--patient refuses to stay and refuses pacemaker at this time, plan is for her to go home on a cardiac holter and fwup with Cardiology as an outpatient, I did clarify with her that she is having pauses on her telemetry and that this could be a life threatening arrhythmia but she still says she wants to go home and that she is not having a pacemaker 2. Hypertension--home on losartan and HCTZ 3. Cardiomegaly with Biatrial Enlargement and Mitral Valve Stenosis with Mitral Regurgitation--BP control and monitor in future, patient has refused to have Echocardiograms done in the past 4. Hyperlipidemia--home on rosuvastatin although the patient has refused statins in the past so I'm not sure if she will continue this as an outpatient 5. Hypothryoidism--TSH normal so resume previous thyroid dose 6. Class III Obesity--patient states she is going to focus on lifestyle change Reason Hospital Visit This is a 76 year old female who presented to the emergency room with fatigue and dizziness and recently elevated blood pressure. She was found to be severely bradycardic with a heart rate in the 30s. She is on atenolol and had taken one extra dose of atenolol 50mg last night due to her elevated blood pressure but her pulse was in the 70s at the time. She will be admitted for further workup and observation. She has not coronary history but does have a cardiac murmur for which she has refused an echocardiogram in the past as well as hyperlipidemia for which she has refused treatment as well. Discharge Summary Hospital Course Was the Problem List Reviewed?: Yes Hospital Course This is a 76 year old female who presented to the emergency room with fatigue and dizziness and recently elevated blood pressure. She was found to be severely bradycardic with a heart rate in the 30s. She is on atenolol and had taken one extra dose of atenolol 50mg last night due to her elevated blood pressure but her pulse was in the 70s at the time. She has no coronary history but does have a cardiac murmur for which she has refused an echocardiogram in the past as well as hyperlipidemia for which she has refused treatment as well. She was admitted to the cardiac stepdown floor and monitored on telemetry. Her atenolol and all beta camryn or calcium channel blockers were held. She had hydralazine prn for elevated blood pressure and was started on rosuvastatin. She did undergo an echocardiogram which showed cardiomegaly with biatrial enlargement and mitral valve stenosis with mitral regurgitation. Her pulse was improving by discharge but she was still having pauses on her telemetry stip consistent with a second degree AV block. She was told this was treated with pacemaker placement by both myself and cardiology but she refused a pacemaker placement and demanded to go home. In fact, she pulled out her IV the day before discharge because she no longer wanted it in her arm and did not see why she needed one. She also threa tened to leave because she was placed on a cardiac diet. She asked what was the worst that could happen and I told her that her heart could stop and she could . She will be switched over to losartan and HCTZ on discharge for her blood pressure and does agree to go home on a holter monitor and then to follow up with cardiology. She will see me in 2 weeks. Rosuvastatin was also sent out but the patient has refused statins in the past. She also states she wants to work on lifestyle change for weight loss and blood pressure and cholesterol control. Labs Laboratory Tests 01/20/22 10:44: Prothrombin Time 11.8L, D-Dimer 0.63H, Glucose Level 116H, B-Type Natriuretic Peptide 138.2H 01/20/22 13:33: 01/20/22 18:56: 01/20/22 22:45: 01/21/22 05:13: Blood Urea Nitrogen 21H, Glucose Level 109H, Cholesterol Level 220H, LDL Cholesterol Direct 174H Procedures None. Discharge Physical Examination Allergies: Coded Allergies: No Known Drug Allergies (Unverified , 01/20/22) Vitals & I&Os Vital Signs Date Time Temp Pulse Resp B/P (MAP) Pulse Ox O2 Delivery O2 Flow Rate FiO2 01/22/22 12:32 174/87 (116) 01/22/22 12:00 93 Room Air 01/22/22 11:40 36.7 71 16 General Appearance: Alert, Oriented X3 Respiratory: Clear to Auscultation Cardiovascular: Regular Rate, Other (systolic murmur) Abdominal: Normal Bowel Sounds, Soft, No Tenderness Psych/Mental Status: Mental Status NL, Mood NL Discharge Home Medications Reviewed and agree with Discharge Medication list on patient's Discharge Instruction sheet Instructions to Patient/Family Please see electronic discharge instructions given to patient. Clinical Quality Measures AMI/AHF: ASA po Prior to arrival: RAYSA Carmona DO Jan 22, 2022 18:00
== END 2022-01-22 11:34 | disposition home or self-care (01) ==
LOC: EDUNIT# 09:50 → ER 09:52 → UNDOADMOB 11:50 → CSD 11:50 → UNDODISOB 01-22 11:34
PROVIDERS: ADMIT Family Medicine; ATTEND Family Medicine
DX: R00.1 Bradycardia, unspecified (principal); I10 Essential (primary) hypertension; E78.5 Hyperlipidemia, unspecified; E03.9 Hypothyroidism, unspecified; E66.01 Morbid (severe) obesity due to excess calories; Z68.41 Body mass index [BMI] 40.0-44.9, adult; Z79.899 Other long term (current) drug therapy; Z87.891 Personal history of nicotine dependence; I42.9 Cardiomyopathy, unspecified; I05.2 Rheumatic mitral stenosis with insufficiency
CPT/HCPCS: 71045; 80048; 80053; 80061; 82550; 82553; 83735; 83874; 83880; 84443; 84484; 85025 ×2; 85379; 85610; 85730; 93005 ×2; 93041; 96372 ×2; 99284; C8929; 36415; 93306

== ENCOUNTER → 2022-02-11 | Outpatient (CLI) | payer MEDICARE ==
[~2022-02-11] MED LIST: ATEN50TA PO; DIPH25CA79 PO; HYDR25TA4 PO; LEVO125T6 PO; LOSA25TA41 PO; ROSU10TA28 PO
--- NOTE | 2022-02-24 16:51 | 30 Day Event Recorder ---
30-DAY EVENT RECORDER 7-DAY ZIO AT EVENT RECORDER DATE OF PROCEDURE: 02/11/2022-02/17/2022. INDICATION: []. PROCEDURE: A 7-day ZIO AT event recorder was obtained for a total of 7 days. The study quality is adequate. RESULTS: 1. Baseline sinus rhythm with an average heart rate of 85 bpm, ranging from 54- 158 bpm with rare supraventricular ectopy as isolated, couplet and triplet beats and rare, isolated premature ventricular complexes each representing less than 1% of the total recording time. 2. There was 1 run of paroxysmal supraventricular tachycardia lasting 8 beats with a peak heart rate of 158 bpm that appears to be atrial tachycardia. 3. There were 2 episodes of Mobitz 1 type II second-degree AV block which were brief and resulted in heart rates ranging from 29-37 bpm one of which occurred at 3:19 PM on 02/17/2022 and the other occurred at 5:58 AM on 02/14/2022. 4. There were no pauses exceeding 3 seconds in duration. 5. No symptoms appear to have been reported during the test. IMPRESSION: 1. This is a 7-day ZIO AT event monitor report. 2. Baseline sinus rhythm with an average heart rate of 85 bpm, ranging from 29- 158 bpm with rare supraventricular ectopy as isolated, couplet and triplet beats and rare, isolated premature ventricular complexes each representing less than 1% of the total recording time. 3. There was 1 run of paroxysmal supraventricular tachycardia lasting 8 beats with a peak heart rate of 158 bpm that appears to be atrial tachycardia. 4. There were 2 episodes of Mobitz 1 type II second-degree AV block which were brief and resulted in heart rates ranging from 29-37 bpm one of which occurred at 3:19 PM on 02/17/2022 and the other occurred at 5:58 AM on 02/14/2022. 5. No symptoms appear to have been reported during the test. Certain portions of this document may have been dictated utilizing voice recognition technology. Inherent to this technology, typographical and grammatical errors may exist. As much as I am diligent to identify and correct these mistakes, some errors may remain in the document. YESIKA PONCE JR, MD Feb 24, 2022 16:51
== END ==
LOC: CARD 10:00
PROVIDERS: ATTEND Internal Medicine Cardiovascular Disease
DX: R00.1 Bradycardia, unspecified (principal)
CPT/HCPCS: 93246

== ENCOUNTER 2022-03-03 13:35 | Outpatient (CLI) | payer MEDICARE | END 2022-03-03 14:05 | LOC: SLEEP 13:35 | PROVIDERS: ATTEND Internal Medicine Cardiovascular Disease | DX: R00.1 Bradycardia, unspecified (principal) | CPT/HCPCS: G0399 ==